=== PATIENT | male | born 1955 | race Caucasian/White ===

== ENCOUNTER 2019-10-28 07:55 | Outpatient (CLI) | payer OTHER ==
--- NOTE | 2019-10-28 08:28 | ULT ---
Exam: Right upper quadrant ultrasound: HISTORY: Nausea and vomiting for 6 weeks COMPARISON: None FINDINGS: Visualized liver:Very coarse heterogeneous liver echogenicity evidence for nonspecific hepatic parenc hymal process including fatty change. Gallbladder:Evidence for minimal layering sludge as well as numerous small nodular foci, nonshadowing , within the gallbladder either representing nodular sludge versus small nonshadowing stones. Common bile duct:Within normal limits. The visualized pancreas and right kidney are unremarkable. No evidence for abscess or abnormal fluid collection in the right upper quadrant. IMPRESSION: Coarse abnormal heterogeneous liver echogenicity. Multiple very small mobile nonshadowing foci within the gallbladder evidence for nonshadowing tiny st ones versus mobile sludge balls.
== END 2019-10-28 07:56 | disposition home or self-care (01) ==
LOC: SCSULT 07:55
PROVIDERS: ATTEND Family Medicine
DX: R11.2 Nausea with vomiting, unspecified (principal); R93.2 Abnormal findings on diagnostic imaging of liver and biliary tract; R93.3 Abnormal findings on diagnostic imaging of other parts of digestive tract
CPT/HCPCS: 76705

== ENCOUNTER 2020-03-08 09:00 | Outpatient (CLI) | payer OTHER | END 2020-03-08 09:01 | disposition home or self-care (01) | LOC: DTY/OP 09:00 | PROVIDERS: ATTEND Family Medicine | DX: R73.03 Prediabetes (principal) | CPT/HCPCS: 97802 ==

== ENCOUNTER 2020-05-28 11:52 | Day surgery (SDC) | payer OTHER ==
[2020-05-25 16:28] VITALS: BMI 39.0
[~2020-05-28 11:52] MED LIST: PROPOFOL 200 MG/20 ML VIAL ONE
[2020-05-28] MEDS ORDERED: Acetaminophen 500 MG TAB ONE (12:45)
[2020-05-28] MEDS ORDERED: Levofloxacin 500 mg/D5W 100 ml Premix Bag ONE (12:45)
[2020-05-28] MEDS ORDERED: Ketorolac Tromethamine 30 MG/ML VIAL ONE (12:46)
[2020-05-28] MEDS ORDERED: Fentanyl 100 MCG/2 ML VIAL ONE ×2 (17:26→18:11)
[2020-05-28] MEDS ORDERED: Bupivacaine 0.25% HCL 30 ML VIAL ONE (17:55)
[2020-05-28] MEDS ORDERED: Lidocaine 1% w/Epinephrine 1:100K 20 ML VIAL ONE (17:55)
[2020-05-28] MEDS ORDERED: PROPOFOL 40 ML ONE (18:11)
--- NOTE | 2020-05-28 19:20 | RAD ---
Exam: Chest one view HISTORY:Status post Mediport catheter placement Comparison: 09/15/2019 FINDINGS: Lines and tubes: Interval placement of a right-sided Mediport catheter, terminating over the expected region of the superior vena cava. Cardiac silhouette: Normal Aorta: Unremarkable Pulmonary vessels: Normal Costophrenic angles: Minimal blunting of the costophrenic angles may be due to small bilateral effusi ons LUNGS: No masses or consolidation. Pneumothorax: None Osseous abnormalities: None IMPRESSION: 1. Minimal small bilateral effusions 2. Right-sided Mediport catheter placement as above. No pneumothorax.
--- NOTE | 2020-05-29 14:58 | OP ---
DATE OF PROCEDURE: 05/28/2020 PREOPERATIVE DIAGNOSIS: Metastatic colon cancer. POSTOPERATIVE DIAGNOSIS: Metastatic colon cancer. PROCEDURE PERFORMED: Placement of right subclavian standard-sized power compatible MediPort. ANESTHESIA: Total intravenous anesthesia with local using 0.25% Marcaine with epinephrine. INDICATIONS: The patient is a 65-year-old white male. He was recently diagnosed with metastatic colon cancer with biopsy-proven recurrence on the abdominal wall. Chemotherapy has been recommended. He presents for MediPort placement for this purpose. DESCRIPTION OF PROCEDURE: Informed consent was obtained. The patient was taken to the operating room where total intravenous anesthesia was obtained with the patient in supine position. Right periclavicular area was prepped with ChloraPrep and draped in sterile fashion. Local anesthetic was infiltrated and a large-gauge needle was passed under the clavicle in the subclavian vein. Guidewire was passed through the needle and fluoroscopically confirmed to enter the superior vena cava. Additional local anesthetic was infiltrated and transverse incision was created based on needle insertion site. A subcutaneous pocket was dissected inferiorly. Introducer dilator was passed over the guidewire under fluoroscopic guidance. The guidewire and dilator were removed, and the catheter was passed through the introducer. The tip of the catheter was positioned at the atriocaval junction and the catheter was trimmed to the appropriate length and secured to the locking hub of the MediPort. The port was then placed in the subcutaneous pocket where it was secured to the pectoral fascia with 2 interrupted sutures of 3-0 Prolene. The incision was then closed in layers with 3-0 and 4-0 Monocryl. Additional local anesthetic was infiltrated. The port was cannulated with a August needle and it aspirated blood freely and was flushed with heparinized saline. Dermabond was placed externally on the skin incision. There were no complications. Blood loss was negligible. The patient tolerated the procedure well and was taken to recovery room in stable condition. FINDINGS: I placed a standard size port secondary to the patient's body habitus. It was placed uneventfully into the right subclavian vein. Fluoroscopy was used throughout the procedure and there were no complications. Job ID: [id number]
== END 2020-05-28 19:50 | disposition home or self-care (01) ==
LOC: SDC 11:52
PROVIDERS: ATTEND Specialist
DX: C18.9 Malignant neoplasm of colon, unspecified (principal); C79.89 Secondary malignant neoplasm of other specified sites; I10 Essential (primary) hypertension; N40.0 Benign prostatic hyperplasia without lower urinary tract symptoms; E11.9 Type 2 diabetes mellitus without complications; Z79.82 Long term (current) use of aspirin; Z79.84 Long term (current) use of oral hypoglycemic drugs; Z79.899 Other long term (current) drug therapy; Z88.0 Allergy status to penicillin; Z90.49 Acquired absence of other specified parts of digestive tract
CPT/HCPCS: 71045; 93005; 93010; C1788; J1642; J1885; J1956; J2704; J3010; S0020

== ENCOUNTER 2020-05-29 10:03 | Outpatient (CLI) | payer OTHER ==
--- NOTE | 2020-05-29 14:32 | PET ---
Radionucleotide PET scan with CT attenuation correction HISTORY: Colon cancer. Recurrent disease. Restaging. COMPARISON: CT abdomen 05/21/2020. FINDINGS: Physiologic uptake of radiotracer throughout the enteric system and along each urinary trac t. Uptake at the level of the larynx is likely related to phonation. No abnormal uptake of the chest. At the ileocolic anastomosis in the right upper quadrant, the soft tissue thickening has a less massl afua appearance than on recent CT. Max SUV at this site is 3.4. Associated with the anterior abdominal wall of the left upper quadrant, there are 3 separate areas of hypermetabolic activity. The most inferior is the lesion most conspicuous on recent CT scan and the one most likely recently biopsied. Morphologic appearance is unchanged from recent CT scan. Max S UV 9.5. It extends slightly superiorly from the subcutaneous lesion into the deep portion of the left rectus abdominis muscle. Slightly more superior, centered within the anterior abdominal wall near the far anterior margin of t he left seventh rib, a tiny focus of increased activity shows max SUV 6.8. Just superior and lateral to this, a subtle masslike area within the anterior abdominal wall musculature shows max SUV 6.8. At the far lateral aspect of the left abdominal wall at the level of the mid left kidney, a small lymph node shows max SUV 3.8. Within the abdomen, scattered areas of subtle density within the omentum show increased radiotracer u ptake. At the anterior midline near the transverse colon, max SUV 4.0. Within the right lower quadrant posteriorly amongst small bowel loops, a small focus shows max SUV 5. 5. Within the left lower quadrant, a small focus of abnormal activity near the sigmoid colon shows max S UV 3.8. IMPRESSION : There are 4 areas of metastatic involvement involving the left anterior abdominal wall, as detailed mikey ferrari. The largest corresponds to the recently detailed on CT exam and likely the one recently biopsied. Mild scattered carcinomatosis confirmed. At the ileocolic anastomosis, there is only mildly increased uptake, so that recurrent disease at thi s site is not necessarily confirmed.
== END 2020-05-29 10:04 | disposition home or self-care (01) ==
LOC: PET 10:03
PROVIDERS: ATTEND Internal Medicine Hematology & Oncology
DX: C18.9 Malignant neoplasm of colon, unspecified (principal); C80.0 Disseminated malignant neoplasm, unspecified; K63.89 Other specified diseases of intestine
CPT/HCPCS: 78815; A9552

== ENCOUNTER 2020-09-06 11:01 | Outpatient (CLI) | payer OTHER ==
--- NOTE | 2020-09-06 14:41 | PET ---
EXAM: PET/CT HISTORY: History of malignant neoplasm of the sigmoid colon; evaluate response to therapy TECHNIQUE: PET scanning with CT attenuation correction was performed from the base of the brain to the proximal thighs following the intravenous administration of 11.8 millicuries [id number]. COMPARISON: PET/CT dated May 29, [address] the abdomen and pelvis dated May 21, 2020 FINDINGS: Biodistribution:The biodistribution for the exam appears acceptable. Head and neck: There is appropriate background activity within the brain. There is increased hypermet abolic activity is seen involving the right tonsillar pillar which is nonspecific with a peak SUV of active value of 5.36. No additional hypermetabolic mass or lymphadenopathy is evident. Thorax: No hypermetabolic pulmonary lesion, pleural effusion or lymphadenopathy is present. Abdomen and pelvis: There is expected background activity within the GI and systems.The hypermetab olic soft tissue mass involving the left upper anterior rectus abdominis demonstrates decreased soft tissue prominence and decreased hypermetabolic uptake. Previously the peak activity was 8.15 now measures 4.11 and the mean activity was 7.32 and now measures 3.68. The hypermetabolic lymph node involving the left lateral abdominal wall demonstrates no associated hy permetabolic uptake on the current examination. The hypermetabolic activity involving the left upper anterior chest wall has decreased in prominence and now is centered within the region of the costochondral junction of the left anterior seventh rib. Peak activity previously was 6.56 and now measures 5.31. Mean activity previously was 6.02 with a mean activity now 4.32. The additional adjacent hypermetabolic nodule within the anterior lower left chest wall is no longer identified. The scattered hypermetabolic carcinomatosis involving the omentum and Morison's pouch is no longer de monstrated. Mild nodularity remains but appears less prominent than on the prior exam. There is a focus of activity within the right ureter likely related to excretory activity. No hypermetabolic activity seen at the ileocolonic anastomotic site. The degree of soft tissue promin ence near the anastomotic site is less prominent than on the prior CT exam. Osseous structures and skin: No hypermetabolic skin or osseous lesion is identified. IMPRESSION: Findings consistent with response to therapy. 1. There is resolution of the hypermetabolic activity involving the peritoneal carcinomatosis of the anterior omentum and within the region of Morison's pouch. 2. There is decreased hypermetabolic uptake involving the soft tissue mass of the left anterior rectu s abdominis musculature and left lower anterior chest wall consistent with abdominal wall and chest wall metastatic disease responding to therapy. Hypermetabolic lymph node seen along the left lateral abdominal wall demonstrates no gross appreciable FDG avidity. 3. No hypermetabolic activity is seen at the ileocolonic anastomosis. There is less nodular prominenc e involving the ileocolonic anastomosis when compared to the prior CT of the abdomen and pelvis dated May 21, 2020 likely related to response to therapy of a recurrent mass at the anastomotic si te. 4. Hypermetabolic activity involving the right palatine tonsil may be reactive in nature. Recommend c orrelation with the clinical examination. Malignancy is felt to be unlikely but cannot be entirely excluded based on the degree of FDG avidity.
== END 2020-09-06 11:02 | disposition home or self-care (01) ==
LOC: PET 11:01
PROVIDERS: ATTEND Internal Medicine Hematology & Oncology
DX: C18.7 Malignant neoplasm of sigmoid colon (principal); C78.6 Secondary malignant neoplasm of retroperitoneum and peritoneum; M79.89 Other specified soft tissue disorders
CPT/HCPCS: 78815; A9552

== ENCOUNTER 2020-11-22 08:06 | Outpatient (CLI) | payer OTHER ==
--- NOTE | 2020-11-22 10:33 | PET ---
Radionucleotide PET scan with CT attenuation correction HISTORY: Malignant neoplasm of sigmoid colon with metastatic disease. Restaging. COMPARISON: 09/06/2020. FINDINGS: At the medial aspect of the left upper quadrant anterior abdominal wall, the partially calc ified mass within the rectus abdominis musculature is significantly smaller on the CT images and now shows max SUV 2.6 (previously 4.1). The focus of increased activity associated with the left anterolateral chest wall at the level of the seventh costochondral junction now shows max SUV 2.4 (previously 5.3). No recurrent mesenteric/omental pathology. Slightly reactive uptake is noted throughout the bone marrow, most apparent at the right iliac bone m ax SUV 3.0. Physiologic uptake is evident within the enteric system and along each urinary tract and associated w ith the muscles of phonation. IMPRESSION : Continued improvement. Minimally increased uptake associated with the left anterior chest wall and ab domen wall lesions. No new metastatic lesions.
== END 2020-11-22 08:07 | disposition home or self-care (01) ==
LOC: PET 08:06
PROVIDERS: ATTEND Internal Medicine Hematology & Oncology
DX: C18.9 Malignant neoplasm of colon, unspecified (principal); C78.6 Secondary malignant neoplasm of retroperitoneum and peritoneum
CPT/HCPCS: 78815; A9552

== ENCOUNTER 2021-09-18 10:08 | Emergency (ER) | payer OTHER ==
[2021-09-18] MEDS ORDERED: Ketorolac Tromethamine 30 MG/ML VIAL ONE (11:05)
[2021-09-18 11:58] LABS: #Eosinphils 0.1 thou/uL (0.0-0.7); #Lymphocytes 0.5 thou/uL (1.20-3.40); #Neutrophils 8.3 thou/uL (1.40-6.50); %Basophils 0.5 % (0.0-1.0); %Eosinophils 0.5 % (0.0-10.0); %Lymphocytes 5.1 % (21.0-51.0); %Monocytes 9.8 % (0.0-10.0); %Neutrophils 84.1 % (42.0-75.0); Hemoglobin 13.9 g/dL (14.0-18.0); Mean Corpuscular HGB CONC 32.4 g/dL (32.0-36.0); Mean Corpuscular Hemoglobin 29.4 pg (27.0-31.0); Mean Corpuscular Volume 90.9 fL (78.0-98.0); Mean Platelet Volume 8.1 fL (7.4-10.4); Platelet Count 192 thou/uL (130-400); RBC Distribution Width 12.8 % (11.5-14.5); Red Blood Cell (RBC) Count 4.72 mill/uL (4.70-6.10); White Blood Cell (WBC) Count 9.9 thou/uL (4.8-10.8)
[2021-09-18 12:04] LABS: Bacteria/HPF Rare-Few HPF (None Seen); Bilirubin Negative (Negative); Blood, Urine 3+ (Negative); Clarity Cloudy (Clear); Glucose, Urine (Dipstick) >=1000 mg/dL (Negative); Ketone, Urine 40 mg/dL (Negative); Leukocyte Negative Leu/uL (Negative); Nitrite Negative (Negative); Protein, Urine (Dipstick) 50 mg/dL (Neg-Trace); RBC/HPF Greater than 50 HPF (0-3); Squamous Epithelial None Seen HPF (0-3); Urobilinogen Normal mg/dL (Less than 2); pH, Urine 5.5 (5.0-9.0)
[2021-09-18 12:17] LABS: ALT (SGPT) 13 U/L (8-55); AST (SGOT) 14 U/L (5-34); Albumin 3.6 g/dL (3.4-4.8); Alkaline Phosphatase 89 U/L (40-110); Anion Gap 13 mmol/L (10-20); BUN (Urea Nitrogen) 15 mg/dL (8.4-25.7); Bilirubin, Total 0.5 mg/dL (0.2-1.2); Calc. Creatinine Clearance 0 mL/min (70-130); Calcium 9.3 mg/dL (7.8-10.44); Carbon Dioxide 24 mmol/L (23-31); Chloride 98 mmol/L (98-107); Globulin 3.2 g/dL (2.4-3.5); Glucose 299 mg/dL (80-115); Protein, Total 6.8 g/dL (5.8-8.1); Sodium 131 mmol/L (136-145)
== END 2021-09-18 13:00 | disposition home or self-care (01) ==
LOC: ERS 10:08
DX: N20.0 Calculus of kidney (principal); C18.7 Malignant neoplasm of sigmoid colon; C78.6 Secondary malignant neoplasm of retroperitoneum and peritoneum; D50.8 Other iron deficiency anemias
CPT/HCPCS: 36416; 74176; 80053; 81003; 81015; 83735; 85025; 96374; J1885